=== PATIENT | male | born 2000 | race Two or more races ===

== ENCOUNTER 2019-11-08 15:03 | Emergency (ER) | payer OTHER ==
[~2019-11-08] VITALS: Ht 175.3 cm; Wt 72.6 kg
--- NOTE | 2019-11-08 15:07 | NUR ---
PT IS IN ROOM #2A. DR JETT EVALUATED THE PT.
[2019-11-08] MEDS ORDERED: LIDOCAINE 2%-EPI 1:100,000 20 ML VIAL ONE (15:08)
[2019-11-08] MEDS ORDERED: TDAP DIPH,PERTUSS,TET VAC/PF 0.5 ML DISP.SYRIN IM ONE ×2 (15:15→15:37)
[2019-11-08] MEDS ORDERED: LIDOCAINE 2%-EPI 1:100,000 20 ML VIAL TP ONE (15:15)
[2019-11-08] MEDS ORDERED: CEphaleXIN 500 MG CAPSULE PO ONE (16:00)
[2019-11-08] MEDS ORDERED: CEphaleXIN 500 MG CAPSULE ONE (16:02)
--- NOTE | 2019-11-08 17:55 | NUR ---
PT WAS D/C'd TO HOME. PT TOLERATED TO LACERATION REPAIR / SUTURING WITHOUT COMPLICATIONS. NO BLEEDING. DRESSING IS INTACT. D/C INSTRUCTIONS GIVEN TO THE PT BY DR JETT.
[2019-11-08 17:57] VITALS: BP 132/71
== END 2019-11-08 17:58 | disposition home or self-care (01) ==
LOC: ER 15:08
DX: S71.112A Laceration without foreign body, left thigh, initial encounter (principal); W29.3XXA Contact with powered garden and outdoor hand tools and machinery, initial encounter; Y92.89 Other specified places as the place of occurrence of the external cause
CPT/HCPCS: 73551; 90715; A4663

== ENCOUNTER 2019-11-10 16:08 | Emergency (ER) | payer OTHER ==
[~2019-11-10] VITALS: Ht 175.3 cm; Wt 72.6 kg
[2019-11-10] MEDS ORDERED: NEOMY/BACITRA/POLYMYXIN B OINT UD PACKET TP ONE ×2 (16:45→17:15)
[2019-11-10] MEDS: BACITRACIN ZINC OINT 15 GM TUBE TOP STA ×2 (16:56→17:06)
--- NOTE | 2019-11-10 16:57 | NUR ---
pt was evaluated by dr ellis. pt was d/c'd to home. d/c instructions given to the pt.
[2019-11-10 16:58] VITALS: BP 125/78
== END 2019-11-10 17:12 | disposition home or self-care (01) ==
LOC: ER 16:11
DX: S71.112D Laceration without foreign body, left thigh, subsequent encounter (principal); W29.3XXD Contact with powered garden and outdoor hand tools and machinery, subsequent encounter
CPT/HCPCS: A4663

== ENCOUNTER 2019-11-26 21:59 | Emergency (ER) | payer OTHER ==
[~2019-11-26] VITALS: Ht 175.3 cm; Wt 72.6 kg
--- NOTE | 2019-11-26 22:11 | NUR ---
Dr. Powers at bedside for MSE.
--- NOTE | 2019-11-26 22:28 | NUR ---
Patient discharged to home in stable condition. Written and verbal after care instructions given. Patient verbalizes understanding of instructions. Stressed follow up or return to ER for worsening s/s. Patient ambulated out of ER with steady gait, no acute signs of distress, VSS, all belongings taken.
[2019-11-26 22:29] VITALS: BP 118/62
== END 2019-11-26 22:30 | disposition home or self-care (01) ==
LOC: ER 22:00
DX: S71.112D Laceration without foreign body, left thigh, subsequent encounter (principal); W45.8XXD Other foreign body or object entering through skin, subsequent encounter
CPT/HCPCS: A4663

== ENCOUNTER 2020-02-02 15:56 | Emergency (ER) | payer BC ==
[~2020-02-02] VITALS: Ht 175.3 cm; Wt 72.6 kg
--- NOTE | 2020-02-02 16:00 | NUR ---
WENT TO ROOM TO HEPLOCK THE PT. PT WAS NOT IN THE ROOM, PT ELOPED. CHECKED OUT SIDE, NOT THERE.
[2020-02-02] MEDS ORDERED: KETOROLAC TROMETHAMINE 15 MG INJ IVP ONE (16:30)
[2020-02-02] MEDS ORDERED: IV NORMAL SALINE 1000 ML BAG IV ONE (16:30)
[2020-02-02] MEDS ORDERED: KETOROLAC TROMETHAMINE 15 MG INJ ONE (16:42)
== END 2020-02-02 16:49 | disposition left against medical advice (07) ==
LOC: ER 15:56
DX: M79.652 Pain in left thigh (principal); L90.5 Scar conditions and fibrosis of skin; S71.112S Laceration without foreign body, left thigh, sequela; X58.XXXS Exposure to other specified factors, sequela; R05 Cough; Z87.81 Personal history of (healed) traumatic fracture
CPT/HCPCS: A4663; J1885; J7030